=== PATIENT | male | born 1965 | race Two or more races ===

== ENCOUNTER 2023-09-27 10:35 | Inpatient (IN) | payer OTHER ==
[2023-09-27 11:04] VITALS: BMI 26.4
[2023-09-27] MEDS ORDERED: AMMONIUM LACTATE 12% LOTION 225 GM BOTTLE TP PRN (12:52)
[2023-09-27] MEDS ORDERED: guaiFENesin 600 MG TABLET.ER (FP) PO PRN (12:52)
[2023-09-27] MEDS ORDERED: POLYETHYLENE GLYCOL (HEALTHYLAX) 3350 17 GM PACKET PO PRN (12:52)
[2023-09-27] MEDS ORDERED: IBUPROFEN 600 MG TABLET (FP) PO PRN (12:52)
[2023-09-27] MEDS ORDERED: BISMUTH SUBSALICYLATE 262 MG/15 ML BTL PO PRN (12:52)
[2023-09-27] MEDS ORDERED: MAGNESIUM HYDROX 2400MG/30ML ORAL SUSPENSION 30 ML CUP PO PRN (12:52)
[2023-09-27] MEDS ORDERED: BENZOCAINE/MENTHOL (CHLORASEPTIC ) LOZENGE MM PRN (12:52)
[2023-09-27] MEDS ORDERED: IBUPROFEN 400 MG TABLET (FP) PO PRN (12:52)
[2023-09-27] MEDS ORDERED: MAG HYDROX/AL HYDROX/SIMETH 30 ML UNIT-DOSE CUP PO PRN (12:52)
[2023-09-27] MEDS ORDERED: NALOXONE (NARCAN) HCL 4 MG/0.1 ML SPRAY NS PRN (12:52)
[2023-09-27] MEDS ORDERED: BENZONATATE 200 MG CAPSULE PO PRN (12:52)
[2023-09-27] MEDS ORDERED: LOPERAMIDE HCL 2 MG CAPSULE PO PRN (12:52)
[2023-09-27] MEDS ORDERED: METHOCARBAMOL 500 MG TABLET PO PRN (12:52)
[2023-09-27] MEDS ORDERED: ACETAMINOPHEN 325 MG TABLET (FP) PO PRN (12:52)
[2023-09-27] MEDS ORDERED: NALOXONE HCL 0.4 MG/ML VIAL IM PRN (12:52)
[2023-09-27] MEDS ORDERED: ONDANSETRON *ODT* 4 MG TABLET SL PRN (12:52)
[2023-09-27] MEDS ORDERED: LORazepam 1 MG TABLET PO PRN (12:55)
[2023-09-27] MEDS: LORazepam 2 MG TABLET PO SCH (17:20)
[2023-09-27] MEDS: THIAMINE 100 MG TABLET PO SCH (22:50)
[2023-09-27] MEDS: MELATONIN 5 MG TABLETS PO SCH (23:19)
[2023-09-28] MEDS: PRENATAL VITAMINS W/ FOLIC ACID TABLET (FP) PO SCH (10:08)
[2023-09-28 11:47] LABS: HEMATOCRIT 37.4 % (35.4-49); HEMOGLOBIN 12.2 GM/dL (11.7-16.9); MCH 32.3 pg (25.7-33.7); MCHC 32.6 g/dl (32.0-35.9); MEAN CELL VOLUME 99.1 fl (80-96); MEAN PLT VOLUME 10.2 fl (7.5-11.1); PLATELET COUNT 76 10^3/uL (134-434); RBC 3.77 M/mm3 (4.00-5.60); RDW 15.8 % (11.9-15.9); WHITE BLOOD COUNT 8.7 K/mm3 (4.0-10.0)
[2023-09-28 11:50] LABS: POTASSIUM 3.6 mmol/L (3.5-5.1)
[2023-09-28 11:55] LABS: ALBUMIN 2.5 g/dl (3.4-5.0); BLOOD UREA NITROGEN 13.3 mg/dL (7-18); CALCIUM 7.8 mg/dL (8.5-10.1)
[2023-09-28 11:58] LABS: CREATININE 0.8 mg/dL (0.55-1.3)
[2023-09-28 11:59] LABS: BILIRUBIN,TOTAL 5.5 mg/dL (0.2-1); TOT PROT 5.6 g/dl (6.4-8.2)
[2023-09-29] MEDS: LORazepam 1 MG TABLET PO SCH (06:00)
[2023-09-29] MEDS: LACTULOSE 20 GM/30 ML UDC (FOR ORAL USE ONLY) PO SCH (11:03)
[2023-09-29] MEDS: FERROUS SO4 325 MG TABLET (FP) PO SCH (11:08)
[2023-09-30] MEDS ORDERED: LORazepam 0.5 MG TABLET PO PRN
[2023-09-30] MEDS: LORazepam 0.5 MG TABLET PO SCH (05:36)
[2023-10-01] MEDS: LORazepam 0.5 MG TABLET PO ONE (05:48)
[2023-10-01 09:39] VITALS: BP 138/82; PULSE 87; RESP 18; TEMP 98.1
== END 2023-10-01 11:30 | disposition other institution (70) | DRG 775 ==
LOC: YASAS 10:35 → Y6N 13:12
PROVIDERS: ADMIT Allergy & Immunology; ATTEND Surgery
PROC: HZ2ZZZZ Detoxification Services for Substance Abuse Treatment (ICD-10-PCS; principal; 2023-09-27)
DX: F10.230 Alcohol dependence with withdrawal, uncomplicated (principal); F10.220 Alcohol dependence with intoxication, uncomplicated; F10.24 Alcohol dependence with alcohol-induced mood disorder; E72.20 Disorder of urea cycle metabolism, unspecified; I10 Essential (primary) hypertension; D64.9 Anemia, unspecified; R41.0 Disorientation, unspecified; R74.8 Abnormal levels of other serum enzymes
CPT/HCPCS: 36415; 80053; 80305; 80307; 82140; 82247; 84450; 85027; 86780; 93005; 93010